=== PATIENT | male | born 2000 ===

== ENCOUNTER 2020-03-15 21:00 | Outpatient (REF) | payer OTHER, SELFPAY ==
[2020-03-15 22:35] LABS: Calculated LDL 112 mg/dL (<100); Cholesterol 177 mg/dL (<200); HDL Cholesterol 44 mg/dL (40-60); Triglyceride 106 mg/dL (<150)
== END 2020-03-15 21:20 ==
LOC: LBN 21:00
PROVIDERS: Visit Provider Physician Assistant Medical
DX: L70.0 Acne vulgaris (principal); Z13.220 Encounter for screening for lipoid disorders
CPT/HCPCS: 80061

== ENCOUNTER 2020-03-25 20:57 | Outpatient (REF) | payer OTHER, SELFPAY ==
[2020-03-25 20:33] LABS: Abs Immature Grans 0.01 k/cumm (0.0-0.09); Absolute Basophil Count 0.02 k/cumm (0.0-0.2); Absolute Eosinophil Count 0.16 k/cumm (0.0-0.7); Absolute Lymphocyte Count 1.94 k/cumm (1.2-3.4); Absolute Monocyte Count 1.03 k/cumm (0.11-0.7); Absolute Neutrophil Count 5.31 k/cumm (1.2-6.7); Basophils % 0.2; Eosinophils % 1.9; HCT 44.2 % (40.0-50.0); HGB 14.8 g/dL (13.5-17.5); Immature Grans % 0.1 %; Lymphocytes % 22.9; Mean Corp. HGB Concentration 33.5 g/dL (32.0-36.0); Mean Corpuscular Hemoglobin 29.1 pg (27.0-33.0); Mean Corpuscular Volume 86.8 fL (80-95); Mean Platelet Volume 10.6 fL (8.0-11.0); Monocytes % 12.2; Neutrophils % 62.7; Platelet Count 265 x1000/uL (130-400); RBC 5.09 m/cumm (4.50-6.00); White Blood Cell Count 8.47 k/cumm (4.4-10.8)
[2020-03-25 20:45] LABS: ALT 20 U/L (16-63); AST 18 U/L (15-37); Albumin 4.3 g/dL (3.4-5.0); Alkaline Phosphatase 80 U/L (46-116); Anion Gap 9.2 mmol/L (3-11); BUN 13 mg/dL (7-18); Bilirubin, Total 0.3 mg/dL (0.2-1.0); CO2 29.8 mmol/L (21.0-32.0); CREATININE 0.99 mg/dL (0.70-1.30); Calcium 9.6 mg/dL (8.5-10.1); Chloride 100 mmol/L (98-107); Glucose 95 mg/dL (74-106); Potassium 4.4 mmol/L (3.5-5.1); Sodium 139 mmol/L (136-145); Total Protein 7.8 g/dL (6.4-8.2)
== END 2020-03-25 21:17 ==
LOC: LBN 20:57
PROVIDERS: Visit Provider Physician Assistant Medical
DX: L70.0 Acne vulgaris (principal)
CPT/HCPCS: 80053; 85025

== ENCOUNTER 2020-04-23 15:17 | Outpatient (REF) | payer OTHER, SELFPAY ==
[2020-04-23 20:35] LABS: Abs Immature Grans 0.02 10^3/uL (0.0-0.06); Absolute Basophil Count 0.03 10^3/uL (0.0-0.2); Absolute Eosinophil Count 0.26 10^3/uL (0.0-0.7); Absolute Lymphocyte Count 2.86 10^3/uL (1.2-3.4); Absolute Monocyte Count 0.67 10^3/uL (0.1-0.8); Absolute Neutrophil Count 3.91 10^3/uL (1.2-6.7); Basophils % 0.4; Eosinophils % 3.4; HCT 46.6 % (40.0-50.0); HGB 15.5 g/dL (13.5-17.5); Immature Grans % 0.3; Lymphocytes % 36.9; MCHC 33.3 % (32.0-36.0); MCV 87.1 fL (80-95); MPV 11.4 fL (8.0-11.0); Monocytes % 8.6; Neutrophils % 50.4; Nucleated RBC 0 %; Platelet Count 238 10^3/uL (130-400); RBC 5.35 10^6/uL (4.36-5.78); RDW 12.2 % (11.8-14.1); RDW-SD 38.7 fL; WBC 7.75 10^3/uL (4.4-10.8)
[2020-04-23 20:51] LABS: ALT 22 U/L (16-63); AST 20 U/L (15-37); Albumin 4.4 g/dL (3.4-5.0); Alkaline Phosphatase 101 U/L (46-116); BUN 14 mg/dL (7-18); Bilirubin, Total 0.4 mg/dL (0.2-1.0); CREATININE 0.98 mg/dL (0.70-1.30); Calcium 9.7 mg/dL (8.5-10.1); Calculated LDL 72 mg/dL (<100); Chloride 103 mmol/L (98-107); Cholesterol 174 mg/dL (<200); Glucose 81 mg/dL (74-106); HDL Cholesterol 41 mg/dL (40-60); Potassium 4.2 mmol/L (3.5-5.1); Sodium 141 mmol/L (136-145); Total Protein 7.7 g/dL (6.4-8.2); Triglyceride 309 mg/dL (<150)
== END 2020-04-23 15:37 ==
LOC: LBN 15:17
PROVIDERS: Visit Provider Physician Assistant Medical
DX: L70.0 Acne vulgaris (principal)
CPT/HCPCS: 80053; 80061; 85025